=== PATIENT | female | born 1985 | race African-American/Black ===

== ENCOUNTER 2022-06-04 15:36 | Emergency (ER) | payer OTHER, SELFPAY ==
--- NOTE | ~2022-06-04 | XR_ITS ---
EXAMINATION: XR chest 2V 06/04/2022 16:08 INDICATION: Chest pain for 3 days PROCEDURE: 2 view chest COMPARISON: No prior studies for comparison. FINDINGS: The lungs are clear. The cardiomediastinal silhouette is within normal limits. There are no pleural effusions. There is no pneumothorax suspected. IMPRESSION: 1: NO ACUTE CARDIOPULMONARY DISEASE. Reviewed, dictated and finalized at location A.
--- NOTE | ~2022-06-04 | CT_ITS ---
EXAMINATION: CT abdomen pelvis w con DATE: 06/04/2022 17:39 INDICATION: Right upper quadrant abdominal pain. Nausea and vomiting. History of hysterectomy 2 month s ago. TECHNIQUE: Computed tomography (CT) of the abdomen and pelvis was performed with 100 cc Omnipaque 300 intravenous contrast. The dose-length product was 1064.07 mGy-cm. Automated exposure control and ite rative reconstruction technique were employed. COMPARISON: No prior studies for comparison. FINDINGS: Lung bases are unremarkable. Cardiomegaly. No significant pleural or pericardial effusion. No significant vascular abnormality. No lymphadenopathy. Status post hysterectomy. Fatty infiltration of the liver. Status post cholecystectomy. The spleen, pancreas, adrenal glands an d kidneys are unremarkable. There is splenosis. Nonobstructive bowel gas pattern. There are multiple ventral hernias containing fat. There are postsurgical changes at the midline of the anterior abdomin al wall. There is a cystic structure in the right adnexa measuring 3.6 x 3.2 cm, likely ovarian cyst. There is stranding in the pelvis, likely postsurgical. No free air. IMPRESSION: 1. No acute abdominal abnormality. 2: Postoperative changes consistent with prior hysterectomy. Ventral wall hernias noted containing fa t. 3: Cardiomegaly. 4: Right adnexal cyst measuring up to 3.6 cm, likely ovarian. Reviewed, dictated and finalized at location A. IMPRESSION: 1. No acute abdominal abnormality. 2: Postoperative changes consistent with prior hysterectomy. Ventral wall herni as noted containing fat. 3: Cardiomegaly. 4: Right adnexal cyst measuring up to 3.6 cm, likely ovarian.
--- NOTE | 2022-06-04 15:40 | ECG_ITS ---
Measurements Intervals Dolores Rate: 110 P: 29 MN: 148 QRS: 30 QRSD: 72 T: 3 QT: 340 QTc: 461 Interpretive Statements SINUS TACHYCARDIA BORDERLINE T WAVE ABNORMALITY- ANT/INF LEADS BASELINE ARTIFACT- I, II, AVR ABNORMAL ECG Electronically Signed On 06-04-2022 16:06:31 CDT by Husam Zuniga D.O.
[2022-06-04 15:42] VITALS: BP 131/92; PULSE 112; RESP 20; TEMP 36.4; O2SAT 98
[2022-06-04 16:30] VITALS: PULSE 76; O2SAT 99
[2022-06-04 16:45] LABS: Basophils Absolute Auto 0.1 K/mm3 (0.0-0.1); Basophils Percent Auto 0.8 % (0.2-1.2); Eosinophils Absolute Auto 0.2 K/mm3 (0-0.3); Eosinophils Percent Auto 1.5 % (0-4.4); Hematocrit 41.1 % (37.0-47.0); Hemoglobin 13.3 g/dL (12.0-15.0); Immature Granulocyte Absolute 0.17 K/mm3 (0.00-0.031); Immature Granulocyte Percent A 1.4 % (0-0.5); Lymphocytes Absolute Auto 3.22 K/mm3 (0.9-3.2); Lymphocytes Percent Auto 27.3 % (18.3-44.2); Mean Corpuscular HGB Conc 32.4 g/dl (32-36); Mean Corpuscular Hemoglobin 27.9 pg (26-34); Mean Corpuscular Volume 86.2 fl (80-100); Monocytes Absolute Auto 0.7 K/mm3 (0.1-0.6); Monocytes Percent Auto 5.8 % (2.6-8.5); Neutrophils Absolute Auto 7.5 K/mm3 (1.3-6.7); Neutrophils Percent Auto 63.2 % (45.5-73.1); Platelet Count Result 393 k/mm3 (150-375); Red Blood Count 4.77 M/mm3 (4.2-5.4); Red Cell Distribution Width 14.2 % (11.5-14.5); White Blood Count 11.8 K/mm3 (4.5-10.0)
[2022-06-04 16:54] LABS: Alanine Aminotransferase 41 U/L (6-35); Albumin Level 4.5 g/dL (3.5-5.1); Alkaline Phosphatase 94 U/L (38-126); Anion Gap 10 mmol/L (8-16); Aspartate Amino Transferase 37 U/L (14-36); Bilirubin,Total 0.2 mg/dL (0.2-1.3); Blood Urea Nitrogen 15 mg/dL (7-17); Calcium 9.4 mg/dL (8.4-10.2); Carbon Dioxide 29 mmol/L (22-30); Chloride 100 mmol/L (98-107); Estimated CRCL calculation 89 ml/min; Estimated Glomerular Filt Rate > 60; Glucose 119 mg/dL (65-110); Lipase 94 U/L (23-300); Potassium 4.2 mmol/L (3.4-5.0); Sodium 139 mmol/L (137-145)
[2022-06-04 16:56] LABS: Prothrombin Time 12.7 Seconds (11.1-14.7)
[2022-06-04 16:58] LABS: Partial Thromboplastin Time 29.2 SECONDS (22.3-36.8)
--- NOTE | 2022-06-04 17:04 | ED.GENADULT ---
HPI - General Adult General Chief complaint: Chest Pain Stated complaint: abd pain Time Seen by Provider: 06/04/22 15:58 Source: patient Mode of arrival: ambulatory Limitations: no limitations History of Present Illness HPI narrative: Patient is a 37-year-old female who presents the ED with multiple complaints. Patient reports she had a hysterectomy 2 months ago. She has had right upper abdominal pain every day since then. The pain became worse today, which prompted her presentation to the ED. She has not tried anything for her pain today. She also reports nausea but denies vomiting. No diarrhea or constipation. Last bowel movement today. Denies any fever. Also reports having 2 episodes of left-sided squeezing chest pain over the last 2 days. No SOB. Unsure how long CP lasts. States she just takes her sleeping medications and goes to bed. Denies any attempt at overdose. Patient does have a mental health past. She takes several psychiatric medications. She states over the last month she has had intermittent suicidal ideations. Denies any SI or HI today however. Related Data Home Medications Medication Instructions Recorded Confirmed oxcarbazepine 600 mg tablet mg 06/04/22 quetiapine 400 mg tablet mg 06/04/22 sertraline 100 mg tablet mg 06/04/22 Allergies Allergy/AdvReac Type Severity Reaction Status Date / Time tramadol Allergy Itching Verified 06/04/22 16:12 NKA Allergy Unknown Unknown Uncoded 06/04/22 16:12 Review of Systems Review of Systems: CONSTITUTIONAL: Denies fever. CARDIOVASCULAR: Reports left-sided squeezing chest pain. Denies palpitations, edema. RESPIRATORY: Denies dyspnea. GASTROINTESTINAL: Reports right-sided abdominal pain, nausea. Denies rectal bleeding, vomiting, or diarrhea. GENITOURINARY: Denies dysuria or hematuria. PSYCHIATRIC: Reports suicidal ideation over last month. Denies current SI/HI. Denies AVH. All systems reviewed & are unremarkable except as noted in HPI and below PMFSH Past Medical History Medical History (Updated 06/04/22 @ 20:58 by Elisa Paz PA-C) Anxiety Depression GERD (gastroesophageal reflux disease) Schizoaffective disorder Surgical History Surgical History (Updated 06/04/22 @ 20:46 by Elisa Paz PA-C) History of hysterectomy Social History Social History Substance use type: marijuana Exam Narrative: GENERAL: Well appearing, obese, non-toxic, in no acute distress. HEAD: Normocephalic, atraumatic. NECK: Supple. No adenopathy, no masses. RESPIRATORY: Airway patent, respirations nonlabored. Clear to auscultation bilaterally, no rales, rhonchi, wheezing. CARDIOVASCULAR: Regular rate and rhythm without murmurs, rubs, or gallops. Peripheral pulses 2+ and equal bilaterally. ABDOMINAL: Soft, mild nonspecific tenderness to palpation in right-sided upper abdomen, nondistended, no hepatosplenomegaly. Normoactive BS. MUSCULOSKELETAL: Moves all extremities. Strength/ROM intact without gross deformities or TTP. No edema. Left-sided chest wall tenderness to palpation. SKIN: Warm, dry, normal color. No rashes. Incision from previous hysterectomy clean dry and intact. NEURO: A&O X3. Speech clear. Cranial nerves II-XII grossly intact. Steady gait. No ataxic movements. PSYCHIATRIC: Appropriate mood, flat affect. Normal interaction. Course Vital Signs Vital signs: Vital Signs Temperature 97.5 F L 06/04/22 15:42 Pulse Rate 112 H 06/04/22 15:42 Respiratory Rate 20 06/04/22 15:42 Blood Pressure 131/92 H 06/04/22 15:42 Pulse Oximetry 98 06/04/22 15:42 Oxygen Delivery Room Air 06/04/22 15:42 Temperature 97.5 F L 06/04/22 15:42 Pulse Rate 95 06/04/22 17:49 Respiratory Rate 18 06/04/22 17:49 Blood Pressure 117/84 06/04/22 17:49 Pulse Oximetry 97 06/04/22 17:49 Oxygen Delivery Room Air 06/04/22 16:30 Medical Decision Making MDM Narrative Medical decision nadine
[2022-06-04 17:06] LABS: Troponin I < 0.012 ng/mL (0.000-0.034)
[2022-06-04 17:33] LABS: Appearance Urine Slightly Cloudy (Clear); Bilirubin Urine 1+ (Negative); Blood Urine Negative (Negative); Color Urine Yellow (Yellow); Glucose Urine UA Negative (Negative); Ketones Urine Trace mg/dL (Negative); Leukocyte Esterase Ur Negative LEU/UL (Negative); Nitrate Urine Negative (Negative); Protein Urine Trace mg/dL (Negative); Specific Grav Ur 1.025 (1.001-1.035); Urobilinogen Urine 0.2 mg/dL (<2.0)
--- NOTE | 2022-06-04 17:33 | PC.NURSE ---
Patient to CT
[2022-06-04 17:37] LABS: Add Urine Microscopic? YES; Mucus Urine Heavy /lpf; Squamous Epithelial Cell Urine Moderate /hpf (Few); WBC Urine 0-3 /hpf
[2022-06-04 17:48] LABS: Amphetamine Screen Urine Negative (Negative); Barbiturate Screen Urine Negative (Negative); Benzodiazepines Screen Urine Positive (Negative); Cannabinoid Screen Urine Positive (Negative); Cocaine Screen Urine Negative (Negative); Methadone Screen Urine Negative (Negative); Opiate Screen Urine Negative (Negative); Phencyclidine Screen Urine Negative (Negative)
[2022-06-04 17:49] VITALS: BP 117/84; PULSE 95; RESP 18; O2SAT 97
[2022-06-04 17:51] LABS: Acetaminophen < 10 ug/mL (10-30); Ethanol < 10 mg/dL (<10); Salicylate < 1.0 mg/dL (2-20)
[2022-06-04 17:57] LABS: D Dimer 0.37 ug/mL (<0.48)
--- NOTE | 2022-06-04 19:10 | PC.NURSE ---
Patient care report given to LINDSAY Molina. All questions answered at this time.
--- NOTE | 2022-06-04 19:33 | PC.NURSE ---
pt refused repeat trop. provider notified
== END 2022-06-04 19:50 | disposition left against medical advice (07) ==
PROVIDERS: Emergency Medicine; Physician Assistant; Emergency Provider Emergency Medicine
DX: R10.11 Right upper quadrant pain (principal); R07.89 Other chest pain; N83.201 Unspecified ovarian cyst, right side; R45.851 Suicidal ideations; Z90.710 Acquired absence of both cervix and uterus; K21.9 Gastro-esophageal reflux disease without esophagitis; F41.9 Anxiety disorder, unspecified; F32.A Depression, unspecified; F25.9 Schizoaffective disorder, unspecified; I51.7 Cardiomegaly; K43.9 Ventral hernia without obstruction or gangrene; R00.0 Tachycardia, unspecified; R94.31 Abnormal electrocardiogram [ECG] [EKG]
CPT/HCPCS: 36415; 71046; 74177; 80053; 80307; 81001; 83690; 84443; 84484; 85025; 85380; 85610; 85730; 93005; 96374; 99284; J0131; Q9967